=== PATIENT | female | born 1955 | race Caucasian/White ===

== ENCOUNTER 2017-08-06 15:32 | Outpatient (CLI) | payer BC | END 2017-08-06 15:33 | disposition home or self-care (01) | LOC: BICRAD 15:32 | PROVIDERS: ATTEND Chiropractor | DX: M54.2 Cervicalgia (principal); M47.812 Spondylosis without myelopathy or radiculopathy, cervical region | CPT/HCPCS: 72050 ==

== ENCOUNTER 2024-06-26 14:37 | Inpatient (IN) | payer OTHER ==
[2024-06-26 15:09] VITALS: BMI 19.5
[2024-06-26] MEDS ORDERED: Ondansetron ODT 4 MG TAB PO PRN (16:38)
[2024-06-26] MEDS ORDERED: Senokot S 8.6-50 MG TAB PO PRN (16:38)
[2024-06-26] MEDS ORDERED: Acetaminophen 650 MG Suppository PR PRN (16:38)
[2024-06-26] MEDS: Lactated Ringer's 1,000 ML IV SCH (17:31)
[2024-06-26] MEDS: Famotidine 20 MG TAB PO SCH (21:00)
[2024-06-26] MEDS: Acetaminophen 325 MG TAB PO PRN (21:00)
[2024-06-27 04:12] LABS: #Basophils 0.06 10x3/uL (0.0-0.2); %Basophils 0.7 % (0.0-1.0); %Eosinophils 0.9 % (0.0-10.0); %Lymphocytes 22.4 % (21.0-51.0); %Monocytes 6.6 % (0.0-10.0); %Neutrophils 69.2 % (42.0-75.0); Hematocrit 41.5 % (36.0-47.0); Hemoglobin 13.1 g/dL (12.0-16.0); Mean Corpuscular HGB CONC 31.6 g/dL (32.0-36.0); Mean Corpuscular Hemoglobin 27.3 pg (27.0-31.0); Mean Corpuscular Volume 86.6 fL (78.0-98.0); Mean Platelet Volume 9.7 fL (7.4-10.4); Platelet Count 266 10x3/uL (130-400); RBC Distribution Width 13.3 % (11.5-14.5); Red Blood Cell (RBC) Count 4.79 mill/uL (4.20-5.40)
[2024-06-27 04:46] LABS: ALT (SGPT) 8 U/L (8-55); AST (SGOT) 15 U/L (5-34); Albumin 3.4 g/dL (3.4-4.8); Alkaline Phosphatase 55 U/L (40-110); Anion Gap 12 mmol/L (10-20); BUN (Urea Nitrogen) 13 mg/dL (9.8-20.1); Bilirubin, Total 0.5 mg/dL (0.2-1.2); Calc. Creatinine Clearance 53 mL/min (70-130); Calcium 8.7 mg/dL (7.8-10.44); Carbon Dioxide 23 mmol/L (23-31); Chloride 107 mmol/L (98-107); Estimated GFR 79; Globulin 2.8 g/dL (2.4-3.5); Glucose 96 mg/dL (80-115); Protein, Total 6.2 g/dL (5.8-8.1); Sodium 138 mmol/L (136-145)
[2024-06-27] MEDS: Calcium Carbonate 500 MG ChewTAB PO PRN (08:29)
[2024-06-27] MEDS: Ondansetron PF 4 MG/2 ML Vial IVP PRN (08:29)
[2024-06-27] MEDS: Fioricet 325/50/40 mg Tablet PO PRN (15:00)
[2024-06-27] MEDS: Donepezil HCl 10 MG TAB PO SCH (20:07)
[2024-06-27] MEDS: FLU (Fluad Triv) TS24-25 (65UP)/MF59C/PF 45 MCG/0.5 ML Syringe IM ONE (20:08)
[2024-06-28 05:00] LABS: #Basophils 0.08 10x3/uL (0.0-0.2); %Basophils 0.9 % (0.0-1.0); %Eosinophils 0.9 % (0.0-10.0); %Lymphocytes 28.1 % (21.0-51.0); %Monocytes 7.4 % (0.0-10.0); %Neutrophils 62.5 % (42.0-75.0); Hematocrit 43.9 % (36.0-47.0); Mean Corpuscular HGB CONC 31.9 g/dL (32.0-36.0); Mean Corpuscular Hemoglobin 27.6 pg (27.0-31.0); Mean Corpuscular Volume 86.4 fL (78.0-98.0); Mean Platelet Volume 9.4 fL (7.4-10.4); Platelet Count 284 10x3/uL (130-400); RBC Distribution Width 13.2 % (11.5-14.5); Red Blood Cell (RBC) Count 5.08 mill/uL (4.20-5.40)
[2024-06-28 05:17] LABS: Anion Gap 18 mmol/L (10-20); BUN (Urea Nitrogen) 11 mg/dL (9.8-20.1); Calc. Creatinine Clearance 51 mL/min (70-130); Calcium 9.2 mg/dL (7.8-10.44); Carbon Dioxide 21 mmol/L (23-31); Chloride 106 mmol/L (98-107); Estimated GFR 76; Glucose 117 mg/dL (80-115); Potassium 3.5 mmol/L (3.5-5.1); Sodium 141 mmol/L (136-145)
[2024-06-28 09:17] LABS: Cardiac Risk 3.1 (Less than 4.5)
[2024-06-28 10:04] VITALS: BMI 19.3
[2024-06-28] MEDS: Aspirin 81 mg Enteric Coated Tablet PO SCH (10:07)
[2024-06-28] MEDS: Metoprolol Tartrate 25 MG TAB PO SCH ×2 (12:27→20:47)
[2024-06-28] MEDS: Rosuvastatin 10 MG TAB PO SCH (20:48)
[2024-06-29 04:29] LABS: #Basophils 0.06 10x3/uL (0.0-0.2); %Basophils 0.7 % (0.0-1.0); %Lymphocytes 20.2 % (21.0-51.0); %Monocytes 8.8 % (0.0-10.0); Hematocrit 40.9 % (36.0-47.0); Hemoglobin 13.1 g/dL (12.0-16.0); Mean Corpuscular Hemoglobin 27.8 pg (27.0-31.0); Mean Corpuscular Volume 86.7 fL (78.0-98.0); Mean Platelet Volume 9.5 fL (7.4-10.4); Platelet Count 269 10x3/uL (130-400); RBC Distribution Width 13.4 % (11.5-14.5); Red Blood Cell (RBC) Count 4.72 mill/uL (4.20-5.40)
[2024-06-29 04:56] LABS: Anion Gap 13 mmol/L (10-20); BUN (Urea Nitrogen) 17 mg/dL (9.8-20.1); Calc. Creatinine Clearance 53 mL/min (70-130); Calcium 8.9 mg/dL (7.8-10.44); Carbon Dioxide 23 mmol/L (23-31); Chloride 105 mmol/L (98-107); Estimated GFR 78; Glucose 104 mg/dL (80-115); Potassium 3.7 mmol/L (3.5-5.1); Sodium 137 mmol/L (136-145)
[2024-06-29] MEDS: Losartan 25 MG TAB PO SCH (09:27)
[2024-06-29 15:48] VITALS: BP 125/59; TEMP 97.9
== END 2024-06-29 16:44 | disposition home or self-care (01) | DRG 65 ==
LOC: INTOOBSV 14:58 → 2NO 14:58 → OBSVTOIN 06-28 13:13
PROVIDERS: ADMIT Hospitalist; ATTEND Hospitalist
PROC: 4A10X4Z Monitoring of Central Nervous Electrical Activity, External Approach (ICD-10-PCS; principal; 2024-06-29)
DX: I63.9 Cerebral infarction, unspecified (principal); F03.94 Unspecified dementia, unspecified severity, with anxiety; S01.112A Laceration without foreign body of left eyelid and periocular area, initial encounter; S01.111A Laceration without foreign body of right eyelid and periocular area, initial encounter; I10 Essential (primary) hypertension; I34.0 Nonrheumatic mitral (valve) insufficiency; Z79.899 Other long term (current) drug therapy
CPT/HCPCS: 36415; 70551; 80048; 80053; 80061; 84443; 85025; 93306; 95700; 95711; 95957; 96374; G0378; J2405; J7120